=== PATIENT | female | born 1950 | race Caucasian/White ===

== ENCOUNTER 2022-05-16 23:44 | Inpatient (IN) | payer MEDICARE, BC ==
[~2022-05-16] VITALS: Ht 167.6 cm; Wt 75.4 kg
[2022-05-17] VITALS (21 sets, daily range): BP systolic 104–152; BP diastolic 45–95; PULSE 53–138; TEMP 97.5–98.1
[2022-05-17 00:19] LABS: BASO # 0.1 K/mm3 (0.0-0.2); BASO % 0.9 % (0.0-2.0); EOS # 0.3 K/mm3 (0.0-0.7); EOS % 3.6 % (0.0-4.0); GRAN # 4.8 K/mm3 (1.4-6.5); GRAN % 59.2 % (42.2-75.2); HEMATOCRIT 43.5 % (37.0-47.0); HEMOGLOBIN 14.4 g/dl (12.5-16.0); LYMPH # 1.9 K/mm3 (1.2-3.4); LYMPH % 23.8 % (20.0-51.0); MEAN CELL VOLUME 84 fl (80.0-100.0); MEAN CORPUSCULAR HEMOGLOBIN 28 pg (27-31); MEAN CORPUSCULAR HGB CONC 33 g/dl (33.0-37.0); MEAN PLATELET VOLUME 9.4 fl (7.4-10.4); MONO % 12.3 % (1.7-9.3); PLATELET COUNT 245 K/mm3 (130-400); RED BLOOD COUNT 5.16 M/mm3 (4.10-5.30); REDCELL DISTRIBUTION WIDTH-CV 13.1 % (11.5-14.5)
[2022-05-17 00:21] LABS: PROTHROMBIN TIME 11.6 SECONDS (9.7-12.8)
[2022-05-17 00:34] LABS: ALBUMIN 3.8 gm/dL (3.4-4.8); BILIRUBIN,TOTAL 0.3 mg/dL (0.2-1.2); CALCIUM 9.3 mg/dL (8.4-10.2); CREATININE, serum 1.01 mg/dL (0.57-1.11); POTASSIUM 3.4 mmol/L (3.5-4.5)
[2022-05-17 00:40] LABS: TROPONIN-I 0.014 ng/mL (0.00-0.033)
[2022-05-17 01:38] LABS: PARTIAL THROMBOPLASTIN TIME 27.9 SECONDS (26.0-37.0)
[2022-05-17] MEDS ORDERED: CATAPRES 0.1MG0.1 MG PO ×2 (01:46)
[2022-05-17] MEDS ORDERED: LEXAPRO20 MG PO (01:46)
[2022-05-17] MEDS ORDERED: PROLIA60 MG/ML SQ (01:46)
[2022-05-17] MEDS ORDERED: ACIPHEX20 MG PO (01:47)
[2022-05-17] MEDS ORDERED: SYNTHROID0.112 MG/T PO (01:47)
[2022-05-17] MEDS ORDERED: WIXELA 250-501 EACH IH (01:47)
[2022-05-17] MEDS ORDERED: LIPITOR 10MG10 MG PO (01:47)
[2022-05-17] MEDS ORDERED: K2-4545 MCG PO (01:52)
[2022-05-17] MEDS ORDERED: PRESERVISION1 SGL PO (01:53)
[2022-05-17] MEDS ORDERED: CALCIUM 600MG+D1 TAB PO (01:53)
[2022-05-17] MEDS ORDERED: THE MEDICINE S200 M2 PO (01:53)
[2022-05-17] MEDS ORDERED: MASON NATURAL2000 IU PO (03:55)
--- NOTE | 2022-05-17 04:30 | NUR ---
Admitted to medical floor from ER- DX afib/RVR, rate 90-120,s B/P stable 130-140SBP, Pt denies pain or SOB, Up to bathroom- steady on feet, has Heparin drip at 14cc/hr and Cardizem drip at 15cc/hr {15 mg/hr},, Geting IV potassium and IV magnesium and also starting on some IV antibiotics empirically- pt does have a cough/stuffiness, covid neg, flu negative.
--- NOTE | 2022-05-17 06:15 | NUR ---
Was in formed per tele that pt is now in sinus - HR 65, B/P 120-150,s systolic-
--- NOTE | 2022-05-17 06:40 | NUR ---
Did let Jasmin SAEZ know that pt is in sinus and rate 65/min, B/P stable,, states to leave Cardizem drip at the 15cc/hr at this time-
[2022-05-17 06:44] LABS: BASO # 0.1 K/mm3 (0.0-0.2); BASO % 0.7 % (0.0-2.0); EOS # 0.1 K/mm3 (0.0-0.7); EOS % 0.8 % (0.0-4.0); GRAN % 78.6 % (42.2-75.2); HEMATOCRIT 41.7 % (37.0-47.0); HEMOGLOBIN 13.9 g/dl (12.5-16.0); LYMPH # 1.3 K/mm3 (1.2-3.4); LYMPH % 16.3 % (20.0-51.0); MEAN CELL VOLUME 84 fl (80.0-100.0); MEAN CORPUSCULAR HEMOGLOBIN 28 pg (27-31); MEAN CORPUSCULAR HGB CONC 33 g/dl (33.0-37.0); MEAN PLATELET VOLUME 9.8 fl (7.4-10.4); MONO # 0.3 K/mm3 (0.1-0.6); MONO % 3.3 % (1.7-9.3); PLATELET COUNT 230 K/mm3 (130-400); RED BLOOD COUNT 4.99 M/mm3 (4.10-5.30); REDCELL DISTRIBUTION WIDTH-CV 13.2 % (11.5-14.5)
[2022-05-17 06:53] LABS: CALCIUM 8.6 mg/dL (8.4-10.2); CHOLESTEROL RISK RATIO 2.5; CREATININE, serum 0.82 mg/dL (0.57-1.11); POTASSIUM 4.2 mmol/L (3.5-4.5)
[2022-05-17 07:02] LABS: TROPONIN-I 6 HR POST INITIAL 0.018 ng/mL (0.00-0.033)
--- NOTE | 2022-05-17 08:15 | NUR ---
PT APPEARS TO BE SLEEPING UPON ENTERING. PT STATES SHE HASNT HAD ANY DECENT SLEEP SINCE ADMISSION. PT HAS NO COMPLAINTS OF PAIN/DISCOMFORT. ASSESSMENT DONE, SEE INTERVENTIONS. CARDIZEM DRIP, HEPARIN DRIP, AND DOXYCYCLINE RUNNING PER ORDER. PT HAS NO OTHER COMPLAINTS AT THIS TIME, CALL LIGHT WITHIN REACH, BED IN LOWEST POSITION.
--- NOTE | 2022-05-17 08:33 | NUR ---
SHIFT ASSESSMENT COMPLETED. PATIENT IS ALERT AND ORIENTED X4. DENIES PAIN. EXPIRATORY WHEEZE THROUGHOUT. ON CARDIZEM DRIP AT 15ML/HR, HEPARIN AT 14ML/HR, TOLERATING WELL. NEXT HEP XA SCHEDULED FOR 0900. CARDIOLOGY PAGED AT 0800, AWAITING RETURN CALL. VITAL SIGNS STABLE. DENIES NEEDS. CALL LIGHT WITHIN REACH.
--- NOTE | 2022-05-17 08:49 | NUR ---
DR. PHILIP NOTIFIED OF CARDIOLOGY CONSULT. PER DR. PHILIP, PATIENT TO STAY ON CARDIZEM DRIP FOR NOW, CARDIOLOGY WILL COME ASSESS.
--- NOTE | 2022-05-17 10:09 | NUR ---
Initial visit; Patient states she is feeling good today and waiting for her to get here. Study Lead wished patient God's blessings and a Happy Easter.
--- NOTE | 2022-05-17 11:07 | NUR ---
PER DR. PHILIP, RN TO DECREASE CARDIZEM DRIP FROM 15ML/HR TO 5ML/HR. VITAL SIGNS REMAIN STABLE. 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 HEPARIN ON HOLD UNTIL RESULTS OF HEP XA ARE OBTAINED.
--- NOTE | 2022-05-17 11:45 | NUR ---
PATIENT GOING DOWN FOR CATH AT THIS TIME.
--- NOTE | 2022-05-17 11:58 | NUR ---
SEE MERGE FOR ALL MEDICATIONS, VITAL SIGNS AND INTERVENTIONS. HEPARIN AND DILTIAZEM GTT STOPPED PER PHYSICIAN ORDER PRIOR TO PROCEDURE.
--- NOTE | 2022-05-17 12:13 | NUR ---
HEP XA <1. PATIENT IN DEPARTMENT EDITOR RIGHT NOW, WILL ADJUST DOSE PER PROTOCOL UPON RETURN.
--- NOTE | 2022-05-17 13:24 | NUR ---
PATIENT RETURNED FROM [employer] AT APPROX 1245. POST OP VITAL SIGNS INITATED, VITAL SIGNS STABLE. PULSES STRONG THROUGHOUT. RIGHT RADIAL BAND ON, NO BLEEDING NOTED. PATIENT EDUCATION PROVIDED ON IMPORTANCE OF NOT BENDING OR LIFTING WITH RIGHT ARM.
--- NOTE | 2022-05-17 15:06 | NUR ---
3ML OF AIR REMOVED AT 1405, NO BLEEDING NOTED. ADDITIONAL 3ML OF AIR REMOVED AT 1440, PATIENT NOTED TO BE BLEEDING, 6ML AIR REPLACED IN RADIAL BAND, BLEEDING STOPPED. VITALS STABLE
--- NOTE | 2022-05-17 17:50 | NUR ---
REMAINDER OF AIR REMOVED FROM RADIAL BAND, NO BLEEDING NOTED. BANDAID PLACED. PULSES PALPABLE. NO HEMATOMA.
[2022-05-18 00:05] VITALS: BP 122/60; PULSE 69; TEMP 97.7
[2022-05-18 03:47] VITALS: BP 125/63; PULSE 67; TEMP 98.6
--- NOTE | 2022-05-18 05:40 | NUR ---
PT.'S RADIAL COMPRESSION BAND WAS REMOVED BEFORE SHIFT CHANGE EARLIER, DRESSING CONTINUES TO REMAIN C/D/I, PULSE'S PALPABLE, PT. DENIES PAIN IN THAT WRIST, WILL CONTINUE TO MONITOR.
[2022-05-18 07:18] VITALS: BP 133/75; PULSE 68; TEMP 97.9
[2022-05-18 09:00] VITALS: BP_SYST 133
[2022-05-18] MEDS ORDERED: TAMBOCOR 1100 MG/TAB PO (09:04)
[2022-05-18] MEDS ORDERED: ELIQUIS 5MG PO (09:05)
[2022-05-18] MEDS ORDERED: MONODOX100 PO (09:05)
[2022-05-18] MEDS ORDERED: MEDROL 4MG DOSPA4 MG PO (09:38)
[2022-05-18] MEDS ORDERED: PROAIR HFA0.09 MG/AC IH (09:38)
--- NOTE | 2022-05-18 09:50 | NUR ---
PATIENT AWAKE IN BED UPON ENTERING. PT EAGER TO GO HOME AND HAS NO COMPLAINTS AT THIS TIME. ASSESSMENT DONE, SEE INTERVENTIONS. CALL LIGHT WITHIN REACH, BED IN LOWEST POSITION.
--- NOTE | 2022-05-18 10:34 | NUR ---
TELEMETRY REMOVED FROM PATIENT, DISCHARGE INSTRUCTIONS ABOUT FOLLOW UP APPOINTMENTS PROVIDED AND EDUCATION REGARDING NEW MEDICATIONS GIVEN WITH HANDOUTS. PATIENT VERBALIZED UNDERSTANDING OF EDUCATION AND IS DRESSED IN PERSONAL CLOTHES WAITING FOR
--- NOTE | 2022-05-18 10:37 | NUR ---
THIS RN OVERSAW Anna RN DURING DISCHARGE INSTRUCTIONS AND PT CARE. BOTH IV'S WERE REMOVED FOR PENDING D/C. WAITING ON TO ARRIVE.
== END 2022-05-18 10:51 | disposition home or self-care (01) | DRG 287 ==
LOC: COL.ER 23:44 → MEDICAL 05-17 01:23
PROVIDERS: Nurse Practitioner Family; Nurse Practitioner Primary Care; ADMIT Hospitalist
PROC: 4A023N8 Measurement of Cardiac Sampling and Pressure, Bilateral, Percutaneous Approach (ICD-10-PCS; principal; 2022-05-17)
PROC: B2111ZZ Fluoroscopy of Multiple Coronary Arteries using Low Osmolar Contrast (ICD-10-PCS; 2022-05-17)
DX: I48.91 Unspecified atrial fibrillation (principal); J45.901 Unspecified asthma with (acute) exacerbation; Z79.01 Long term (current) use of anticoagulants; E78.5 Hyperlipidemia, unspecified; Z20.822 Contact with and (suspected) exposure to COVID-19; J44.9 Chronic obstructive pulmonary disease, unspecified; K22.70 Barrett's esophagus without dysplasia; K21.9 Gastro-esophageal reflux disease without esophagitis; E03.9 Hypothyroidism, unspecified; M81.0 Age-related osteoporosis without current pathological fracture; E87.6 Hypokalemia; E83.42 Hypomagnesemia; F95.2 Tourette's disorder; B97.81 Human metapneumovirus as the cause of diseases classified elsewhere
CPT/HCPCS: C1769; J0696; J1644; J2250; J2920; J2930; J3010; J3475; J3480; J7030; Q9967